=== PATIENT | female | born 1955 | race Caucasian/White ===

== ENCOUNTER 2017-10-16 10:36 | Day surgery (SDC) | payer OTHER ==
[~2017-10-16] VITALS: Ht 162.6 cm; Wt 63.5 kg
== END 2017-10-16 12:34 | disposition home or self-care (01) ==
LOC: ORSCMMR 10:36 → ORD 11:30 → ORSCMMR 11:30
PROVIDERS: Internal Medicine Gastroenterology
PROC: 0DJD8ZZ Inspection of Lower Intestinal Tract, Via Natural or Artificial Opening Endoscopic (ICD-10-PCS; principal; 2017-10-16 11:30)
DX: Z12.11 Encounter for screening for malignant neoplasm of colon (principal); K64.8 Other hemorrhoids
CPT/HCPCS: J7120

== ENCOUNTER 2021-09-26 17:38 | Emergency (ER) | payer OTHER ==
[~2021-09-26] VITALS: Ht 162.6 cm; Wt 68.0 kg
== END 2021-09-26 19:54 | disposition home or self-care (01) ==
LOC: ER 17:38
DX: S61.411A Laceration without foreign body of right hand, initial encounter (principal); Z23 Encounter for immunization; W31.2XXA Contact with powered woodworking and forming machines, initial encounter; Y92.9 Unspecified place or not applicable
CPT/HCPCS: 73130; 90714; A9270